=== PATIENT | female | born 1950 | race Caucasian/White ===

== ENCOUNTER 2019-03-06 07:26 | Observation (INO) | payer MEDICARE ==
[2019-03-04 16:46] LABS: BASOPHILS % 0.5 % (0.0-1.0); EOSINOPHILS # (AUTO) 0.1 (0.0-0.4); EOSINOPHILS % 2.3 % (0.0-6.0); HEMATOCRIT 35.4 % (34.2-44.1); HEMOGLOBIN 11.9 g/dL (12.0-16.0); LYMPHOCYTES # (AUTO) 1.8 (1.0-3.2); LYMPHOCYTES % 32.5 % (18.0-39.1); MEAN CORPUSCULAR HEMOGLOBIN 30.7 pg (28-32); MEAN CORPUSCULAR HGB CONC 33.6 g/dL (31-35); MEAN CORPUSCULAR VOLUME 91.5 fL (81-99); MONOCYTES # (AUTO) 0.5 (0.2-0.8); MONOCYTES % 9.6 % (4.4-11.3); NEUTROPHILS # (AUTO) 3.1 (2.1-6.9); NEUTROPHILS % 54.7 % (38.7-80.0); PLATELET COUNT 275 x10e3/uL (140-360); RED BLOOD COUNT 3.87 x10e6/uL (3.6-5.1); RED CELL DISTRIBUTION WIDTH 12.9 % (11.7-14.4)
[2019-03-04 16:56] LABS: INR 0.83; PROTHROMBIN TIME 11.9 seconds (11.9-14.5)
[2019-03-04 16:57] LABS: PARTIAL THROMBOPLASTIN TIME 24.7 seconds (23.8-35.5)
[2019-03-04 17:01] LABS: ANION GAP 14.2 mmol/L (8-16); CALCIUM 9.7 mg/dL (8.4-10.2); CREATININE, SERUM 1.06 mg/dL (0.57-1.11); POTASSIUM 3.2 mmol/L (3.5-5.1)
--- NOTE | 2019-03-04 17:42 | Diagnostic Imaging Report ---
Frontal and lateral views of the chest. HISTORY: C5-6 spondylosis, neck pain, preop COMPARISON: None available. DISCUSSION: Lungs: The lungs are well inflated. No evidence of a consolidative pneumonia or pulmonary alveolar edema. Pleura: No pleural effusion or pneumothorax. Heart and mediastinum: The cardiomediastinal silhouette appear(s) unremarkable. Bones and soft tissues: Appear unremarkable. IMPRESSION: No acute radiographic abnormality. Signed by: Dr. Kenneth Alvarado D.O., M.M.M. on 03/04/2019 5:39 PM
[~2019-03-06] VITALS: Ht 162.6 cm; Wt 73.9 kg
[~2019-03-06 07:26] MED LIST: ACETAMINOPHEN 1000 MG/100 ML 100 ML IV ONE; IBUPROFEN 800MG/ 250ML 250 ML IV ONE; LEVOTHYROXINE75 MCG PO; LIDOCAINE HCL (LTA) 4 ML SOLN ONE; LOSARTAN-HCTZ1 EACH PO; LOVASTATIN20 MG PO; METFORMIN HCL500 MG PO; METOPROLOL SUCC25 MG PO; MULTIPLE VITAM1 EAC1 PO; VITAMIN B COMP1 EACH PO
--- OUTSIDE RECORDS SUMMARY | 2019-03-06 07:31 | XMS REPORT | Summary of Care ---
Author Author [facility] Outpatient Imaging [facility] Outpatient Imaging [place] Address Unknown Phone Unavailable Encounter HQ Encntr_alias(FIN) [id number] Date(s): 09/23/18 - 09/23/18 [facility] Outpatient Imaging [place] [address] [facility] [address] [place], [place] [address]- [phone] Discharge Disposition: Home or Self Care Attending Physician: Shauna Thomas MD Referring Physician: Shauna Thomas MD Vital Signs No data available for this section Problem List No data available for this section Allergies, Adverse Reactions, Alerts No data available for this section Medications No data available for this section Results No data available for this section Immunizations No data available for this section Procedures No data available for this section Social History No data available for this section Assessment and Plan No data available for this section
--- OUTSIDE RECORDS SUMMARY | 2019-03-06 07:31 | XMS REPORT | Summary of Care ---
Author Author [facility] Outpatient Imaging [facility] Outpatient Imaging [place] Address Unknown Phone Unavailable Encounter HQ Encntr_alias(FIN) [id number] Date(s): 08/27/17 - 08/27/17 [facility] Outpatient Imaging [place] [address] [facility] [address] [place], [place] [address]- [phone] Encounter Diagnosis Encounter for screening mammogram for malignant neoplasm of breast (Final) - 08/29/17 Discharge Disposition: Home or Self Care Attending Physician: Shauna Thomas MD Vital Signs No [...]
--- OUTSIDE RECORDS SUMMARY | 2019-03-06 07:31 | XMS REPORT | Summary of Care ---
Author Author [facility] Outpatient Imaging [facility] Outpatient Imaging [place] Address Unknown Phone Unavailable Encounter HQ Encntr_alias(FIN) [id number] Date(s): 02/25/19 - 02/25/19 [facility] Outpatient Imaging [place] [address] [facility] [address] [place], [place] [address]- [phone] Discharge Disposition: Home or Self Care Attending [...]
--- OUTSIDE RECORDS SUMMARY | 2019-03-06 07:31 | XMS REPORT | Continuity of Care Document ---
Author Author [facility] [employer] Organization [facility] Address Unknown Phone Unavailable Care Team Providers Care Staff Readiness Officer Name Role Phone [employer] Unavailable Unavailable Problems Problem Status Onset Date Classification Date Reported Comments Source Encounter for screening mammogram for malignant neoplasm of breast 08/30/2017 12/03/2017 [facility] [employer] Z12.31 - ENCNTR SCREEN MAMMOGRAM FOR MA Active 11/19/2015 [facility] Medications No Data Provided for This Section Allergies, Adverse Reactions, Alerts No Known Medication Allergies Immunizations No Data Provided for This Section Results No Data Provided for This Section Pathology Reports No Data Provided for This Section Diagnostic Reports Report Value Date Source Spine Thoracic wo contrast MRI Patient Name: MARIOLA ALAS : 1950; Age: 68 years y/o Female MR: [id number] Study: Spine Thoracic wo contrast MRI 02/25/2019 13:38 CDT Ordering Physician: MD Shauna Thomas MD Clinical Indication: - mid-back pain; Comparison: None TECHNIQUE: Multiplanar noncontrast MRI of the thoracic spine is performed. FINDINGS: ALIGNMENT AND GENERAL SURVEY: There is normal alignment of the thoracic spine. The bone marrow is normal for the patient's age. There are no fractures or compression deformities. The thoracic spine posterior elements are normal. The costovertebral junctions are unremarkable. SPINAL CORD: The thoracic spine spinal cord is normal in size and signal. The CSF space is unremarkable. The conus medullaris ends at the L1 level. DISK SPACES: The discs show normal hydration and signal. There is a 4 mm left central disc protrusion at T6-T7 indenting the ventral lateral thecal sac with probable mass effect on the left T7 ventral root. Shallow central disc protrusions are seen at T2-T3 and T3-T4 levels. No significant canal or foraminal stenosis at the other levels. The facet joints are unremarkable. IMPRESSION: A broad-based left central disc protrusion at T6-T7 indenting the left ventrolateral surface of the cord. 02/25/2019 [facility] Spine cervical wo contrast MRI Patient Name: MARIOLA ALAS : 1950; Age: 68 years y/o Female MR: [id number] Study: Spine cervical wo contrast MRI 02/25/2019 13:37 CDT Ordering Physician: Shauna Thomas MD Clinical Indication: - radiculopathy; . Numbness in arms, right greater than left. Comparison: None TECHNIQUE: Multiplanar noncontrast magnetic resonance imaging of the cervical spine is performed. FINDINGS: Moderate scoliosis of the cervical spine with apex to the right. C5. The vertebral bodies are normal in height. Mild loss of disc height is noted throughout the cervical spine. The marrow signal is unremarkable. The craniocervical junction is unremarkable. The cervical cord is normal in signal and caliber. The paravertebral soft tissues are unremarkable. Changes by levels: C2-C3: Unremarkable. C3-C4: Moderate left foraminal stenosis due to uncovertebral arthrosis and facet arthrosis. C4-C5: Small disc bulge osteophyte complex indenting the ventral thecal sac with borderline spinal stenosis. There is mild left foraminal stenosis due to uncovertebral arthrosis and facet arthrosis. C5-C6: Right foraminal disc protrusion and underlying uncovertebral arthrosis with severe right foraminal stenosis and impingement of exiting C6 nerve root. There is moderate to severe left foraminal stenosis due to uncovertebral arthrosis and facet arthrosis with possible mass effect on the left C6 nerve root. Underlying disc bulge osteophyte complex with mild spinal stenosis and indentation on the ventral surface of the cord. C6-C7: Small disc bulge osteophyte complex with borderline spinal stenosis and mild foraminal stenosis. C7-T1: Left foraminal broad-based disc protrusion and underlying uncovertebral arthrosis with severe left foraminal stenosis and impingement of T1 nerve root. Partially visualized mild degenerative changes in the thoracic spine.. IMPRESSION: C7-T1: Large left foraminal broad-based disc protrusion osteophyte with severe left foraminal stenosis and impingement of exiting nerve root. C5-C6: Mild spinal stenosis and severe bilateral foraminal stenosis, right greater than left, with impingement of exiting C6 nerve roots. Degenerative changes at the other levels as discussed. 02/25/2019 [facility] Spine thoracic 2 views DX Clinical Indication: - mid and back pain in thoracic spine; Comparison: Two-view chest radiograph from 11/07/2012. FINDINGS: The 3 views of the thoracic spine show minimal reverse S-shaped scoliotic curvature of the visualized thoracolumbar spine. There are no fractures or subluxations. The anterior paraspinal soft tissues are unremarkable. Mild degenerative changes are noted in the upper and mid portions of the thoracic spine, with the presence of intervertebral disc space narrowing and osteophytic spurring. Additional degenerative changes are noted in the lower cervical spine. The visualized posterior elements are unremarkable. The costovertebral junctions are unremarkable. If there is further concern or neurological abnormalities on clinical exam, recommend CT or MRI of the thoracic spine for complete assessment. IMPRESSION: 1. No radiographic evidence of fracture or subluxation in the thoracic spine. 2. Mild degenerative changes in the lower cervical, as well as upper and mid thoracic, spines. 3. Minimal reverse S-shaped scoliotic curvature of the visualized thoracolumbar spine. SL: [id number] 02/19/2019 [facility] Spine cervical 2 or 3 view DX CERVICAL SPINE Clinical Indication: - neck pain with radiculopathy Comparison: None FINDINGS: 3 view examination of the cervical spine demonstrates moderate narrowing of the C5-C7 disc spaces with disc osteophyte complexes at those levels. The remaining disc spaces are maintained. Alignment is unremarkable. The posterior elements are intact. The dens and lateral masses are intact. If there is further concern or neurological abnormalities on clinical exam, recommend further radiographic views, MRI or CT of the cervical spine for complete assessment. IMPRESSION: 1. C5-C7 mild to moderate degenerative disc disease. SL: [id number] 02/19/2019 [facility] Chest 2 views DX XR CHEST 2 VIEWS HISTORY: - chest wall pain COMPARISON: 11/07/2012 FINDINGS: The lungs are clear. The heart and vascular markings are normal. No pleural abnormality. The bones are intact. IMPRESSION: No active process. SL: [id number] 02/19/2019 [facility] Breast Mammo Scrn RYLAN incl CAD MA BILATERAL DIGITAL SCREENING MAMMOGRAM WITH CAD: 09/23/2018 CLINICAL: /Routine. Current study was evaluated with a Computer Aided Detection (CAD) system. COMPARISON:Comparison is made to exams dated: 08/27/2017 mammogram and 11/23/2015 mammogram - [facility]. TECHNIQUE: Mammographic views were obtained using digital acquisition. Current study was also evaluated with a Computer Aided Detection (CAD) system. FINDINGS: The tissue of both breasts is heterogeneously dense, which could obscure detection of small masses. No significant masses, calcifications, or other findings are seen in either breast. There has been no significant interval change. IMPRESSION: NEGATIVE RECOMMENDATION:There is no mammographic evidence of malignancy. A 1 year screening mammogram is recommended.(09/24/2019) This exam was interpreted at [id number] for [facility]. Professional services are provided by the [facility] Division of Diagnostic Imaging. Alexey Portillo M.D. dt/penrad:09/25/2018 10:07:54 Lithographic Retoucher Apprentice(s): Mirta Egan, [facility] letter sent: BI-RADS 1/2 Dense Mammogram BI-RADS: 1 Negative 09/23/2018 [facility] [place] Breast Mammo Scrn RYLAN incl CAD MA BILATERAL DIGITAL SCREENING MAMMOGRAM WITH CAD: 08/27/2017 CLINICAL: Routine/Z12.31. Current study was evaluated with a Computer Aided Detection (CAD) system. COMPARISON:Comparison is made to exams dated: 11/23/2015 mammogram, 11/07/2012 mammogram - [facility], and 03/25/2009 mammogram. TECHNIQUE: Mammographic views were obtained using digital acquisition. Current study was also evaluated with a Computer Aided Detection (CAD) system. FINDINGS: The tissue of both breasts is heterogeneously dense, which could obscure detection of small masses. There are benign calcifications in both breasts. No significant masses, calcifications, or other findings are seen in either breast. There has been no significant interval change. IMPRESSION: BENIGN RECOMMENDATION:There is no mammographic evidence of malignancy. A 1 year screening mammogram is recommended.(08/28/2018) This exam was interpreted at [id number] for [facility]. Professional services are provided by the [facility] Division of Diagnostic Imaging. Alexey Portillo M.D. dt/penrad:08/27/2017 14:10:58 Lithographic Retoucher Apprentice(s): RT Bobby(R)(M), [facility] letter sent: BI-RADS 1/2 Dense Mammogram BI-RADS: 2 Benign 08/27/2017 [facility] Digital Mammo Screening Rylan [place] - DIGITAL MAMMO SCREENING RYLAN MA BILATERAL DIGITAL SCREENING MAMMOGRAM WITH CAD: 11/23/2015 CLINICAL: Screening. Current study was evaluated with a Computer Aided Detection (CAD) system. Comparison is made to exams dated: 11/07/2012 mammogram - [facility], 03/25/2009 mammogram, 06/28/2007 mammogram and 03/06/2006 mammogram. The tissue of both breasts is heterogeneously dense, which could obscure detection of small masses. There are benign calcifications in both breasts. No significant masses, calcifications, or other findings are seen in either breast. There has been no significant interval change. IMPRESSION: BENIGN There is no mammographic evidence of malignancy. A 1 year screening mammogram is recommended. True Knowles M.D. cm/penrad:11/24/2015 09:12:57 Lithographic Retoucher Apprentice: Kerri MCWILLIAMS(Yan)(William), [facility] This exam was dictated and interpreted by [id number] for MIGUEL Cano. letter sent: Normal exam Mammogram BI-RADS: 2 Benign 11/23/2015 [facility] Consultation Notes No Data Provided for This Section Discharge Summaries No Data Provided for This Section History and Physicals No Data Provided for This Section Vital Signs No Data Provided for This Section Encounters Location Location Details Encounter Type Encounter Number Reason For Visit Attending Provider ADM Date DC Date Status Source [facility] Outpatient Imaging [place] [facility] [id number] Shauna William 11/23/2015 11/24/2015 [facility] Outpatient [facility] [place] [facility] [id number] Shauna William 08/27/2017 08/28/2017 [facility] [place] [facility] [id number] Shauna William 09/23/2018 [facility]/24/[facility] [place] [facility] [id number] Shauna William 02/19/2019 02/20/2019 [facility] [place] [facility] [id number] Shauna William 02/25/2019 02/26/2019 [facility] Procedures No Data Provided for This Section Assessment and Plan No Data Provided for This Section Plan of Care No Data Provided for This Section Social History Social History Date Source No data available for this section 02/26/2019 [facility] Family History No Data Provided for This Section Advance Directives No Data Provided for This Section Functional Status No Data Provided for This Section
--- OUTSIDE RECORDS SUMMARY | 2019-03-06 07:31 | XMS REPORT | Summary of Care ---
Author Author [facility] Outpatient Imaging [facility] [place] Address Unknown Phone Unavailable Encounter HQ Encntr_alias(FIN) [id number] Date(s): 11/23/15 - 11/23/15 [facility] Outpatient Imaging [address] [address] [phone] Discharge Disposition: Home Attending Physician: Shauna Thomas MD Vital Signs [...]
--- OUTSIDE RECORDS SUMMARY | 2019-03-06 07:31 | XMS REPORT ---
Author Author [facility] Address Unknown Phone Unavailable Care Team Providers Care Groover And Turner Name Role Phone RACHID HANDLEY Unavailable Unavailable Problems This patient has no known problems. Allergies, Adverse Reactions, Alerts This patient has no known allergies or adverse reactions. Medications This patient has no known medications. Results Test Description Test Time Test Comments Text Results Atomic Results Result Comments CHEST 2 VIEWS 2019-03-04 17:38:00 [place] [address] Patient Name: MARIOLA ALAS MR #: [id number] : 1950 Age/Sex: 68/F Req #: [id number] [facility] Physician: Ordered by: RACHID HANDLEY MD Report #: [id number] Location: OR Room/Bed: Procedure: [id number] DX/CHEST 2 VIEWS Exam Date: 03/04/19 Exam Time: 1700 REPORT STATUS: Signed Frontal and lateral views of the chest. HISTORY: C5-6 spondylosis, neck pain, preop COMPARISON: None available. DISCUSSION: Lungs: The lungs are well inflated. No evidence of a consolidative pneumonia or pulmonary alveolar edema. Pleura: No pleural effusion or pneumothorax. Heart and mediastinum: The cardiomediastinal silhouette appear(s) unremarkable. Bones and soft tissues: Appear unremarkable. IMPRESSION: No acute radiographic abnormality. Signed by: Dr. Johnny Alvarado D.O., M.M.M. on 03/04/2019 5:39 PM Dictated By: JOHNNY ALVARADO DO 38 Transcribed By: HAYLEY on 03/04/191738 COPY TO: RACHID HANDLEY MD
--- OUTSIDE RECORDS SUMMARY | 2019-03-06 07:31 | XMS REPORT | Summary of Care ---
Author Author [facility] Outpatient Imaging [facility] Outpatient Imaging [place] Address Unknown Phone Unavailable Encounter HQ Encntr_alias(FIN) [id number] Date(s): 02/19/19 - 02/19/19 [facility] Outpatient Imaging [place] [address] [facility] [address] [place], [place] [address] [phone] Discharge Disposition: Home or Self Care Attending [...]
[2019-03-06] MEDS ORDERED: CEFAZOLIN SOD 1 GM/NS 50ML 50 ML IV ONE (09:08)
[2019-03-06] MEDS ORDERED: FAMOTIDINE 20 MG/2 ML VIAL IV ONE (09:31)
[2019-03-06] MEDS ORDERED: SCOPOLAMINE 1.5 MG PATCH ONE (09:31)
[2019-03-06] MEDS ORDERED: SUGAMMADEX SODIUM 200 MG/2 ML VIAL IV ONE (09:32)
[2019-03-06] MEDS ORDERED: BUPIVACAINE 0.5%/EPI 30 ML SDV INJ ONE (09:37)
[2019-03-06] MEDS ORDERED: THROMBIN FOR SOLN 5,000 UNIT VIAL ONE (09:37)
[2019-03-06] MEDS ORDERED: BACITRACIN 50,000 UNIT VIAL ONE (09:37)
[2019-03-06] MEDS: LACTATED RINGER'S 1,000 ML IV SCH ×2 (11:03→19:23)
[2019-03-06] MEDS ORDERED: ZOLPIDEM TARTRATE 5 MG TAB PO PRN (11:15)
[2019-03-06] MEDS ORDERED: CEPACOL SORE THROAT LOZENGES PO PRN (11:15)
[2019-03-06] MEDS ORDERED: ONDANSETRON HCL INJ 2MG/ML 2ML 2 MG/ML VIAL IV PRN (11:15)
[2019-03-06] MEDS ORDERED: HYDROMORPHONE 2MG/ML 2 MG/ML ML IV PRN (11:15)
[2019-03-06] MEDS ORDERED: PROMETHAZINE HCL (IM) 25 MG/ML VIAL IM PRN (11:15)
[2019-03-06] MEDS ORDERED: MORPHINE SULFATE INJ 4 MG/ML INJ 1ML IM PRN (11:15)
[2019-03-06] MEDS ORDERED: ACETAMINOPHEN 325 MG TAB PO PRN (11:15)
[2019-03-06] MEDS ORDERED: MAGNESIUM/ALUMINUM/SIMETHICONE 30 ML UDC PO PRN (11:15)
[2019-03-06] MEDS ORDERED: FENTANYL CITRATE/PF 100MCG/2 ML INJ ONE ×2 (11:26→19:08)
--- OUTSIDE RECORDS SUMMARY | 2019-03-06 11:42 | XMS REPORT | Continuity of Care Document ---
Author Author [employer] Organization [employer] Address Unknown Phone Unavailable Care Team Providers Care Belt Brander Name Role Phone [employer] Unavailable Unavailable Problems Problem Status Onset Date Classification Date Reported Comments Source Encounter for screening mammogram for malignant neoplasm of breast 08/30/2017 12/03/2017 [facility] [employer] Z12.31 - ENCNTR SCREEN MAMMOGRAM FOR MA Active 11/19/2015 [employer] [employer] Medications No Data Provided for This Section Allergies, Adverse Reactions, Alerts No Known Medication Allergies Immunizations No Data Provided for This Section Results No Data Provided for This Section Pathology Reports No Data Provided for This Section Diagnostic Reports Report Value Date Source Spine Thoracic wo contrast MRI Patient Name: MARIOLA ALAS : 1950; Age: 68 years y/o Female MR: [id number] Study: Spine Thoracic wo contrast MRI 02/25/2019 [...] left ventrolateral surface of the cord. 02/25/2019 [facility] Spine cervical wo contrast MRI Patient Name: MARIOAL ALAS : 1950; Age: 68 years y/o Female MR: [id number] Study: Spine cervical wo contrast MRI 02/25/2019 [...] at the other levels as discussed. 02/25/2019 [facility] Spine thoracic 2 views DX Clinical Indication: [...] curvature of the visualized thoracolumbar spine. SL: [id number] 02/19/2019 [facility] Spine cervical 2 or 3 view DX [...] mild to moderate degenerative disc disease. SL: [id number] 02/19/2019 [facility] Chest 2 views DX XR CHEST 2 VIEWS HISTORY: - chest wall pain COMPARISON: 11/07/2012 FINDINGS: The lungs are clear. The heart and vascular markings are normal. No pleural abnormality. The bones are intact. IMPRESSION: No active process. SL: [id number] 02/19/2019 [facility] Breast Mammo Scrn RYLAN incl CAD MA BILATERAL DIGITAL SCREENING MAMMOGRAM WITH CAD: 09/23/2018 CLINICAL: /Routine. Current study was evaluated with a Computer Aided Detection (CAD) system. COMPARISON:Comparison is made to exams dated: 08/27/2017 mammogram and 11/23/2015 mammogram - [facility]. TECHNIQUE: Mammographic views were obtained using digital [...] is recommended.(09/24/2019) This exam was interpreted at [id number] for [facility]. Professional services are provided by the [facility] Division of Diagnostic Imaging. Alexey Portillo M.D. dt/penrad:09/25/2018 10:07:54 Glass Technician(s): Mirta Egan, [facility] letter sent: BI-RADS 1/2 Dense Mammogram BI-RADS: 1 Negative 09/23/2018 [facility] [place] Breast Mammo Scrn RYLAN incl CAD MA BILATERAL DIGITAL SCREENING MAMMOGRAM WITH CAD: 08/27/2017 CLINICAL: Routine/Z12.31. Current study was evaluated with a Computer Aided Detection (CAD) system. COMPARISON:Comparison is made to exams dated: 11/23/2015 mammogram, 11/07/2012 mammogram - [facility], and 03/25/2009 mammogram. TECHNIQUE: Mammographic views were [...] is recommended.(08/28/2018) This exam was interpreted at [id number] for [facility]. Professional services are provided by the [facility] Division of Diagnostic Imaging. Alexey Portillo M.D. dt/penrad:08/27/2017 14:10:58 Glass Technician(s): RT Bobby(R)(M), [facility] letter sent: BI-RADS 1/2 Dense Mammogram BI-RADS: 2 Benign 08/27/2017 [facility] Digital Mammo Screening [place] - DIGITAL MAMMO SCREENING RYLAN MA BILATERAL DIGITAL SCREENING MAMMOGRAM WITH CAD: 11/23/2015 CLINICAL: Screening. Current study was evaluated with a Computer Aided Detection (CAD) system. Comparison is made to exams dated: 11/07/2012 mammogram - [facility], 03/25/2009 mammogram, 06/28/2007 mammogram and 03/06/2006 mammogram. [...] is recommended. True Knowles M.D. cm/penrad:11/24/2015 09:12:57 Glass Technician: Kerri MCWILLIAMS(Yan)(William), [facility] This exam was dictated and interpreted by [id number] for MIGUEL Cano. letter sent: Normal exam [...] Provider ADM Date DC Date Status Source [facility] Outpatient Imaging [place] [facility] [id number] Shauna William 11/23/2015 11/24/2015 [facility] Outpatient Imaging [place] [facility] [id number] Shauna William 08/27/2017 [facility]28[facility] [place] [facility] [id number] Shauna William 09/23/2018 09/24/2018 [facility] [place] [facility] [id number] Shauna William 02/19/2019 02/20/2019 [facility] Outpatient Imaging [place] [facility] [id number] Shauna William 02/25/2019 02/26/2019 [facility] Procedures [...]
--- NOTE | 2019-03-06 13:39 | NUR ---
Patient admitted to unit from PACU. Patient is post op cervical spinal fusion. Soft collar in place with 4x4 dressing to right side of neck. Clean and dry. Patient ambulates with assist. Voided at this time. Lung lepe clear to auscultation. Bowel sounds present x4. No edema noted. Left AC IV in place. Bilateral SCD's in place
[2019-03-06 15:10] VITALS: BP 167/90
[2019-03-06 15:13] VITALS: BP 167/90
[2019-03-06 16:02] VITALS: BP 149/85
[2019-03-06] MEDS: METFORMIN HCL 500 MG TAB PO SCH (16:57)
[2019-03-06] MEDS: CARISOPRODOL 350 MG TAB PO PRN (16:58)
[2019-03-06] MEDS: CEFAZOLIN SOD 1 GM/NS 50ML 50 ML IV SCH (16:59)
[2019-03-06] MEDS: OXYCODONE/ACETAMINOPHEN 5-325 1 EACH TABLET PO PRN (16:59)
[2019-03-06] MEDS ORDERED: HYDROCHLOROTHIAZIDE 25 MG TAB PO SCH (17:00)
[2019-03-06] MEDS ORDERED: LOSARTAN POTASSIUM 25 MG TAB PO SCH (17:00)
[2019-03-06] MEDS ORDERED: METOPROLOL SUCCINATE 25 MG TAB XL PO SCH (17:00)
--- NOTE | 2019-03-06 18:05 | Operative Report ---
DATE OF PROCEDURE: 03/06/2019 SURGEON: Freddy Mckeon MD PREOPERATIVE DIAGNOSIS: C5-C6 spondylosis with radiculopathy. POSTOPERATIVE DIAGNOSIS: C5-C6 spondylosis with radiculopathy. PROCEDURES: 1. C5-C6 anterior cervical diskectomy and microsurgical osteophyte resection and allograft fusion, 85795. 2. Preparation of MTF corticocancellous allograft, 36759. 3. C5-C6 anterior cervical plating with Synthes DPM plate, [id number]. ANESTHESIA: General. INDICATIONS: The patient is a woman, who presents with C5-C6 spondylosis with central and bilateral foraminal stenosis, worse on the left. She was taken to the operating room for C5-C6 anterior cervical decompression and fusion. PROCEDURE IN DETAIL: After induction of anesthesia, the patient was placed on the operating table in the supine position. The right side of the neck was prepped and draped in sterile fashion. The fluoroscopic C-arm was positioned in cross-table lateral orientation. A transverse incision was created. The right side of the neck superimposed on the C5-C6 disk as determined by fluoroscopy. The platysma was divided in line with the incision. A subplatysmal dissection was carried out and avascular plane of dissection was developed medial to the sternocleidomastoid muscle and was followed medial to the carotid sheath to the anterior border of cervical spine. The deep cervical fascia was opened. The esophagus was retracted to the left. The attachments of longus colli muscles to the anterolateral aspects of vertebral bodies of C5 and C6 were divided. The anterior longitudinal ligament was resected. Henderson posts were inserted into C5 and C6. Henderson distractor was used to distract the disk space. The anterior annulus of the disk was incised with a #11 blade and the contents of the disks were thoroughly evacuated with angled-curettes and pituitary rongeurs. The posterior osteophytes were meticulously drilled with a 2 mm cutting bur on a high-speed drill until they were completely removed. The posterior annulus of the disk, herniated disk material, and the posterior longitudinal ligament were resected layer by layer, and the dura was fully exposed and decompressed. The medial aspects of the uncinate processes were resected bilaterally to further expose any compressed origins of the corresponding nerve roots. After satisfactory decompression had been achieved, the endplates were prepared for fusion. A piece of MTF corticocancellous allograft measuring 7 mm in thickness was selected and loaded onto a Synthes ZPN plate. The construct was inserted into the C5-C6 disk space under distraction and fluoroscopic guidance. The distraction was released and distraction posts were removed. The plate was screwed to the endplates of C5 and C6 with two pairs of 14 mm screws. All screws were locked and excellent construct was obtained. The wound was copiously irrigated with bacitracin solution. Meticulous hemostasis was secured. Retractor was removed. The platysma was closed with 3-0 Vicryl sutures. The skin was closed with 4-0 Monocryl sutures in subcuticular fashion. Steri-Strips and dressing were applied. The patient was awakened, extubated, and taken to postanesthesia care in stable condition. No intraoperative complications were encountered. Estimated blood loss was 10 mL. Freddy Mckeon MD PP/RAE /[id number]
[2019-03-06] MEDS ORDERED: ONDANSETRON HCL INJ 2MG/ML 2ML 2 MG/ML VIAL ONE (18:49)
[2019-03-06] MEDS ORDERED: DEXAMETHASONE SOD PHOS INJ 4 MG/ML VIAL ONE (18:49)
[2019-03-06] MEDS ORDERED: LIDOCAINE HCL 2% LOCAL INJ 5 ML SDV VIAL INJ ONE (18:49)
[2019-03-06] MEDS ORDERED: SEVOFLURANE INHAL SOLN 250 ML PEN BTL ONE (18:49)
[2019-03-06] MEDS ORDERED: ROCURONIUM BROMIDE 10 MG/ML 5ML VIAL ONE (18:49)
[2019-03-06] MEDS ORDERED: LIDOCAINE HCL 2% JELLY 5 ML TUBE ONE (18:49)
[2019-03-06] MEDS ORDERED: GLYCOPYRROLATE INJ 1MG/ 5 ML SYR ONE (18:49)
[2019-03-06] MEDS ORDERED: NEOSTIGMINE 5 MG/5ML SYR ONE (18:49)
[2019-03-06] MEDS ORDERED: PROPOFOL IV EMULSION 10 MG/ML 20 ML VIAL ONE (18:49)
[2019-03-06] MEDS ORDERED: MIDAZOLAM HCL 2 MG/2 ML VIAL ONE (19:08)
[2019-03-06 19:56] VITALS: BP 124/71
[2019-03-06 20:38] VITALS: BP 124/71
[2019-03-06] MEDS ORDERED: SIMVASTATIN 20 MG TAB PO SCH (21:00)
--- NOTE | 2019-03-06 21:10 | NUR ---
Assessment done.no resp.distress.no pain voiced.ambulates .voided.right neck dressing is dry and soft collar in place.bed locked and in lowest position.phone and call light within reach.instructed to call for assistance as needed.stable condition.
[2019-03-06 23:59] VITALS: BP 99/58
[2019-03-07] MEDS: OXYCODONE/ACETAMINOPHEN 5-325 1 EACH TABLET PO PRN (01:21)
[2019-03-07] MEDS: CARISOPRODOL 350 MG TAB PO PRN ×2 (01:22→10:15)
[2019-03-07] MEDS: CEFAZOLIN SOD 1 GM/NS 50ML 50 ML IV SCH ×2 (01:36→09:26)
[2019-03-07] MEDS: LACTATED RINGER'S 1,000 ML IV SCH (03:43)
[2019-03-07 04:42] VITALS: BP 132/72
[2019-03-07] MEDS ORDERED: LEVOTHYROXINE SODIUM 75 MCG TAB PO SCH (06:00)
--- NOTE | 2019-03-07 07:08 | NUR ---
Bedside shift report given to the oncoming Rn.stable condition.
--- NOTE | 2019-03-07 07:29 | Diagnostic Imaging Report ---
Cervical Spine, 3 views HISTORY: Pain COMPARISON: None. FINDINGS: Limited sensitivity for detection of subtle fractures and ligamentous abnormalities. On the lateral view, the cervical spine is visualized from the skull base to T1. The alignment is normal. No acute displaced fracture involving the visualized cervical spine. Status post anterior C5-C6 fusion with disc spacer in place. Intact hardware. Mild emphysema and increased thickening of the prevertebral space. IMPRESSION: Status post anterior C5-C6 fusion with disc spacer in place. Intact hardware. Mild emphysema and increased thickening of the prevertebral space, likely postsurgical. Signed by: Dr. Mao Valderrama MD on 03/07/2019 7:26 AM
[2019-03-07 07:38] VITALS: BP 139/74
[2019-03-07] MEDS: METFORMIN HCL 500 MG TAB PO SCH (08:38)
[2019-03-07 08:39] VITALS: BP 139/74
[2019-03-07] MEDS ORDERED: Vitamin B Complex 1 TAB PO SCH (09:00)
[2019-03-07] MEDS ORDERED: MULTIVITAMINS/MINERALS TAB PO SCH (09:00)
[2019-03-07] MEDS ORDERED: METOPROLOL SUCCINATE 25 MG TAB XL PO SCH (09:00)
[2019-03-07] MEDS ORDERED: LOSARTAN POTASSIUM 25 MG TAB PO SCH (09:00)
[2019-03-07] MEDS ORDERED: HYDROCHLOROTHIAZIDE 25 MG TAB PO SCH (09:00)
[2019-03-07] MEDS ORDERED: NORCO 7.5-3251 EACH PO (10:17)
--- NOTE | 2019-03-07 11:00 | NUR ---
Patient discharged off the unit via wheelchair at this time. Soft collar in place. Education completed. All questions answered. Patient has no complaints of pain. Prescriptions given.
== END 2019-03-07 11:00 | disposition home or self-care (01) ==
LOC: OR 07:26 → PACU V 11:04 → MED/SURG 13:39
PROVIDERS: ADMIT Neurological Surgery; ATTEND Neurological Surgery
DX: M50.122 Cervical disc disorder at C5-C6 level with radiculopathy (principal); M47.22 Other spondylosis with radiculopathy, cervical region; Z01.810 Encounter for preprocedural cardiovascular examination; Z01.812 Encounter for preprocedural laboratory examination; Z01.811 Encounter for preprocedural respiratory examination; I10 Essential (primary) hypertension; E78.00 Pure hypercholesterolemia, unspecified; E03.9 Hypothyroidism, unspecified
CPT/HCPCS: 20931; 22551; 22845; 36415 ×3; 71046; 72040; 80048; 82948 ×2; 84132; 85025; 85610; 85730; 86850; 86900; 88304; 93005; C1713 ×2; G0378 ×2; J0131; J0690 ×2; J1100; J2001 ×2; J2250; J2405; J2704; J3010; J3490; J7121; 77003

== ENCOUNTER → 2019-04-03 | Outpatient (CLI) | payer MEDICARE ==
[~2019-04-03] MED LIST changes: -ACETAMINOPHEN 1000 MG/100 ML 100 ML IV ONE; -IBUPROFEN 800MG/ 250ML 250 ML IV ONE; -LIDOCAINE HCL (LTA) 4 ML SOLN ONE; +NORCO 7.5-3251 EACH PO
--- NOTE | 2019-04-03 12:19 | Diagnostic Imaging Report ---
EXAMINATION: SPINE CERVICAL AP LAT FLEX EXT INDICATION: Postoperative COMPARISON: None FINDINGS: AP and lateral views in neutral, flexion and extension were obtained. Postoperative findings of anterior cervical discectomy and fusion at C5-6 alignment is anatomic on neutral and extension views. On flexion view, there is minimal anterolisthesis at C3-4 and C4-5. Hardware is intact. Multilevel degenerative changes with disc space narrowing and small osteophyte formation appear unchanged. The prevertebral soft tissues are normal in thickness. IMPRESSION: Unchanged alignment status post anterior cervical discectomy and fusion at C5-6. Signed by: Chilo Nixon MD on 04/03/2019 12:15 PM
== END ==
LOC: RAD 10:50
PROVIDERS: ATTEND Neurological Surgery
DX: M50.20 Other cervical disc displacement, unspecified cervical region (principal); M43.22 Fusion of spine, cervical region
CPT/HCPCS: 72050